=== PATIENT | female | born 1990 | race Caucasian/White ===

== ENCOUNTER 2016-12-09 19:52 | Emergency (ER) | payer OTHER ==
[~2016-12-09] VITALS: Ht 175.3 cm; Wt 77.1 kg
[2016-12-09 20:35] VITALS: BP 143/83
[2016-12-09] MEDS ORDERED: KEPPRA500 M4 ORAL (20:35)
[2016-12-09] MEDS ORDERED: DILANTIN100 MG ORAL (20:35)
[2016-12-09] MEDS ORDERED: ACYCLOVIR800 MG ORAL (21:14)
[2016-12-09] MEDS ORDERED: Bicillin LA 2,400,000 units IM ONE (21:15)
[2016-12-09 21:51] VITALS: BP 143/83
--- NOTE | 2016-12-11 00:38 | Emergency Room Report ---
History of Present Illness General Chief Complaint: Back Pain-No Injury Source: Patient Present Illness HPI 26-year-old male identifying as female is ED for evaluation. Patient was triaged as back pain. However patient states that she is having pain in her private area for several weeks now. Pain as throbbing, 8/10. Nonradiating. Denies any discharge. States that her last HIV test was negative. Patient states that her partner has similar rash and was treated for syphilis. No other aggravating or relieving factors. Denies any other associated symptoms Allergies: Coded Allergies: No Known Allergies (Unverified , 12/09/16) Patient History Past Medical History: none Past Surgical History: none Pertinent Family History: none Social History: Denies: alcohol use, drug use, smoking Last Menstrual Period: 12/08/16 Now: No Immunizations: UTD Reviewed Nursing Documentation: PMH: Agreed, PSxH: Agreed Nursing Documentation-PMH Hx Seizures: Yes Review of Systems All Other Systems: negative except mentioned in HPI Physical Exam Vital Signs Date Time Temp Pulse Resp B/P Pulse Ox O2 Delivery O2 Flow Rate FiO2 12/09/16 20:30 98.4 81 18 143/83 98 Room Air Sp02 EP Interpretation: reviewed, normal General Appearance: no apparent distress, alert, GCS 15, non-toxic Head: normocephalic Eyes: bilateral eye PERRL, bilateral eye normal inspection ENT: normal ENT inspection Neck: normal inspection Respiratory: normal inspection Cardiovascular #1: normal inspection Gastrointestinal: normal inspection Rectal: deferred Genitourinary: other - diffuse flesh colored warts noted to perineum. no discharge. no induration Musculoskeletal: normal inspection Neurologic: alert, oriented x3, responsive, motor strength/tone normal, sensory intact, speech normal Psychiatric: normal inspection Skin: rash Lymphatic: normal inspection Medical Decision Making Diagnostic Impression: Primary Impression: Genital warts ER Course Hospital Course 26-year-old male identifying as female presents to ED with rash to genital area Differential diagnoses include: Cellulitis, dermatitis, insect bite, abscess Clinical course Patient placed on stretcher. After initial history, physical exam reveals a young female in no acute distress. On exam there are multiple flesh color warts to the perineal area. Consistent with genital warts versus HPV she states her partner was treated for syphilis. Given dose of penicillin in ED. diagnosis - genital warts stable and discharged to home with prescription for acyclovir. Instructed to followup with PMD. Instructed return to ED if symptoms recur or worsen Last Vital Signs Date Time Temp Pulse Resp B/P Pulse Ox O2 Delivery O2 Flow Rate FiO2 12/09/16 21:51 98.4 18 143/83 98 Room Air 12/09/16 20:35 81 Status: improved Disposition: HOME, SELF-CARE Condition: Stable Scripts Acyclovir* (ZOVIRAX*) 800 Mg Tablet 800 MG ORAL FIVE TIMES A DAY for 7 Days, TAB Prov: JARAD VELASQUEZ M.D. 12/09/16 Referrals: [facility]ERR[facility] (PCP) Patient Instructions: Genital Warts, [id number] JARAD VELASQUEZ M.D. Dec 11, 2016 00:38
== END 2016-12-09 21:51 | disposition home or self-care (01) ==
LOC: EMR 21:23
DX: A63.0 Anogenital (venereal) warts (principal)
CPT/HCPCS: 96372; 99283

== ENCOUNTER 2017-05-02 01:54 | Emergency (ER) | payer OTHER ==
[~2017-05-02] VITALS: Ht 175.3 cm; Wt 95.3 kg
[~2017-05-02 01:54] MED LIST: ACYCLOVIR800 MG ORAL; DILANTIN100 MG ORAL; KEPPRA500 M4 ORAL
[2017-05-02 02:20] VITALS: BP 111/79
[2017-05-02] MEDS ORDERED: BACTRIM DS TAB1 EAC1 ORAL (04:05)
[2017-05-02] MEDS ORDERED: IBUPROFEN600 MG ORAL (04:05)
[2017-05-02] MEDS ORDERED: Ketorolac 60mg Inj IM ONE (04:15)
[2017-05-02 04:20] VITALS: BP 118/75
--- NOTE | 2017-05-02 04:20 | Emergency Room Report ---
History of Present Illness General Chief Complaint: Skin Rash/Abscess Source: Patient Present Illness HPI 26YOF with left foot pain for 2-3 days ?homeless No insect bites or trauma/cuts to foot No previous abscess No history of DM Area of swelling to left foot between big toe and 2nd toe on dorsum No pus drainage No OTC meds Denies other medical problems Allergies: Coded Allergies: No Known Allergies (Unverified , 12/09/16) Patient History Past Medical History: none Past Surgical History: none Pertinent Family History: none Social History: Denies: smoking, alcohol use, drug use Last Menstrual Period: NONE Now: No Immunizations: UTD Reviewed Nursing Documentation: PMH: Agreed, PSxH: Agreed Nursing Documentation-PMH Past Medical History: No Stated History Hx Seizures: Yes Review of Systems All Other Systems: negative except mentioned in HPI Physical Exam Vital Signs Date Time Temp Pulse Resp B/P (MAP) Pulse Ox O2 Delivery O2 Flow Rate FiO2 05/02/17 02:15 98.2 102 18 111/79 98 05/02/17 02:20 Room Air Sp02 EP Interpretation: reviewed, normal General Appearance: normal inspection, well appearing, no apparent distress, alert, GCS 15, non-toxic Head: normocephalic, atraumatic Eyes: bilateral eye PERRL, bilateral eye EOMI ENT: normal ENT inspection, hearing grossly normal, normal voice Neck: normal inspection, full range of motion, supple, no bony tend Respiratory: normal inspection, lungs clear, normal breath sounds, no respiratory distress, no retraction, no wheezing Cardiovascular #1: regular rate, rhythm, no edema Gastrointestinal: normal inspection, normal bowel sounds, non tender, soft, no guarding, no hernia Genitourinary: no CVA tenderness Musculoskeletal: normal inspection, back normal, normal range of motion, Jethro' s Sign negative Neurologic: normal inspection, alert, oriented x3, responsive, chair pad maker III-XII nml as tested, motor strength/tone normal, speech normal Psychiatric: normal inspection, judgement/insight normal, mood/affect normal Skin: other - left foot dorsum: streaking erythema, induration. No fluctuance, abscess. Area is ~3cm between big toe/index toe on dorsum of foot Medical Decision Making Diagnostic Impression: Primary Impression: Cellulitis Qualified Codes: L03.032 - Cellulitis of left toe ER Course VSS. Afebrile. Cellulitis Isolated Not septic Otherwise well appearing No history of DM, abscess Rx bactrim PMD followup Last Vital Signs Date Time Temp Pulse Resp B/P (MAP) Pulse Ox O2 Delivery O2 Flow Rate FiO2 05/02/17 02:20 98.2 102 18 111/79 98 Room Air Status: improved Disposition: HOME, SELF-CARE Condition: Improved Scripts Ibuprofen* (MOTRIN*) 600 Mg Tablet 600 MG ORAL THREE TIMES A DAY for 7 Days, #30 TAB 0 Refills Prov: JESSICA EUCEDA M.D. 05/02/17 Trimethoprim/Sulfamethoxazole 160/800* (BACTRIM DS TABLET*) 1 Each Tablet 1 TAB ORAL Q12H for 7 Days, #14 TAB 0 Refills Prov: JESSICA EUCEDA M.D. 05/02/17 Patient Instructions: Cellulitis, [id number] Additional Instructions: - Take ALL antibiotics until finished - Take motrin up to 3x a day with food to reduce pain/swelling JESSICA EUCEDA M.D. May 02, 2017 04:20
[2017-05-02 04:28] VITALS: BP 118/74
== END 2017-05-02 04:28 | disposition home or self-care (01) ==
LOC: EMR 03:00
DX: L03.032 Cellulitis of left toe (principal)
CPT/HCPCS: 96372; 99284

== ENCOUNTER 2017-05-13 00:38 | Emergency (ER) | payer OTHER ==
[~2017-05-13] VITALS: Ht 175.3 cm; Wt 72.6 kg
[~2017-05-13 00:38] MED LIST changes: +BACTRIM DS TAB1 EAC1 ORAL; +IBUPROFEN600 MG ORAL
[2017-05-13] MEDS ORDERED: Bacitracin Oint UD TOPIC ONE (00:45)
[2017-05-13] MEDS ORDERED: Phenytoin 100mg cap ORAL ONE (00:45)
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
[2017-05-13] MEDS ORDERED: BACITRACIN15 GM TOPIC (00:49)
[2017-05-13] MEDS ORDERED: KEPPRA500 MG ORAL (00:49)
[2017-05-13] MEDS ORDERED: DILANTIN100 MG ORAL (00:49)
[2017-05-13 01:10] VITALS: BP_SYST 112; BP_DIAS 71; BP_DIAS 76
== END 2017-05-13 01:09 ==
LOC: EMR 00:51
DX: S00.81XA Abrasion of other part of head, initial encounter (principal); S00.412A Abrasion of left ear, initial encounter; S80.812A Abrasion, left lower leg, initial encounter; Y04.0XXA Assault by unarmed brawl or fight, initial encounter; Y92.89 Other specified places as the place of occurrence of the external cause
CPT/HCPCS: 99284